=== PATIENT | male | born 1955 | race Caucasian/White ===

== ENCOUNTER 2021-12-28 12:54 | Emergency (ER) | payer OTHER, MEDICARE ==
[~2021-12-28] VITALS: Ht 187.9 cm; Wt 99.8 kg
[~2021-12-28 12:54] MED LIST: ACID REDUCER10 MG PO; CLARITIN10 MG PO; FLONASE ALLERG9.9 ML NAS; GABAPENTIN600 MG PO; LISINOPRIL2.5 MG PO; LUNESTA1 MG PO; NEXIUM40 MG PO; PREDNISONE10 MG PO; ROBITUSSIN AC 110 ML PO; ROZEREM8 MG PO
[2021-12-28] MEDS ORDERED: CEPHALEXIN500 M1 PO (16:13)
== END 2021-12-28 16:02 | disposition home or self-care (01) ==
LOC: ED 12:54
DX: S51.011A Laceration without foreign body of right elbow, initial encounter (principal); S00.03XA Contusion of scalp, initial encounter; Z79.899 Other long term (current) drug therapy; Z88.0 Allergy status to penicillin; V89.2XXA Person injured in unspecified motor-vehicle accident, traffic, initial encounter; Y93.89 Activity, other specified; Y92.89 Other specified places as the place of occurrence of the external cause; Y99.8 Other external cause status